=== PATIENT | female | born 1930 | race Caucasian/White ===

== ENCOUNTER 2018-10-16 16:05 | Observation (INO) | payer MEDICARE, OTHER ==
[2018-10-16] MEDS: SOD CHLORIDE 0.9% 1,000 ML IV (16:10)
[2018-10-16] MEDS: ALBUTEROL 0.5% (NEB) 2.5 MG/0.5 ML AMP INH (16:47)
[2018-10-16] MEDS: IPRATROPIUM (NEB) 0.5 MG/2.5 ML AMP INH (16:48)
[2018-10-16 16:59] LABS: ADD MAN DIFF? NO
[2018-10-16] MEDS ORDERED: LIDOCAINE 1% (MPF) 30 ML INJ INJ (16:59)
[2018-10-16 17:05] LABS: WHITE BLOOD COUNT 13.2 10^3/ul (4.8-10.8)
[2018-10-16 17:05] LABS: BASOPHIL # 0.1 10^3/ul (0.0-0.1); BASOPHILS % 0.4 % (0.0-2.0); EOSINOPHILS # 0.1 10^3/ul (0.0-0.5); EOSINOPHILS % 0.8 % (0.0-7.0); HEMOGLOBIN 11.6 g/dl (12.0-16.0); LYMPHOCYTES # 1.2 10^3/ul (0.8-2.9); LYMPHOCYTES % 8.9 % (15.0-51.0); MEAN CORPUSCULAR HEMOGLOBIN 28.2 pg (29.0-33.0); MEAN CORPUSCULAR HGB CONC 32.2 g/dl (32.0-37.0); MEAN CORPUSCULAR VOLUME 87.6 fl (82.0-101.0); MEAN PLATELET VOLUME 10.4 fl (7.4-10.4); MONOCYTES % 7.2 % (0.0-11.0); NEUTROPHIL # 10.9 10^3/ul (1.6-7.5); NEUTROPHILS % 82.2 % (39.0-77.0); PLATELET COUNT 323 10^3/UL (140-415); RED BLOOD COUNT 4.11 10^6/ul (4.20-5.40); RED CELL DISTRIBUTION WIDTH 14.3 % (11.5-14.5)
[2018-10-16] MEDS ORDERED: LIDOCAINE 2% (MDV) 20 ML INJ (17:06)
[2018-10-16 17:22] LABS: ALANINE AMINOTRANSFERASE 14 IU/L (13-69); ALBUMIN 3.7 g/dl (3.3-4.9); ALBUMIN/GLOBULIN RATIO 1.08; ALKALINE PHOSPHATASE 64 IU/L (42-121); ANION GAP 9 (5-13); ASPARTATE AMINO TRANSFERASE 24 IU/L (15-46); BILIRUBIN,INDIRECT 0.4 mg/dl (0-1.1); BILIRUBIN,TOTAL 0.4 mg/dl (0.2-1.3); BLOOD UREA NITROGEN 19 mg/dl (7-20); CALCIUM 9.2 mg/dl (8.4-10.2); CARBON DIOXIDE 22 mmol/L (21-31); CHLORIDE 108 mmol/L (97-110); CREATININE 0.76 mg/dl (0.44-1.00); GLUCOSE 106 mg/dl (70-220); LIPASE 49 U/L (23-300); POTASSIUM 4.2 mmol/L (3.5-5.1); SODIUM 139 mmol/L (135-144); TOTAL PROTEIN 7.1 g/dl (6.1-8.1)
[2018-10-16] MEDS: LIDOCAINE 1% (MPF) 5 ML VIAL INJ (17:30)
[2018-10-16 17:33] LABS: TROPONIN-I < 0.012 ng/ml (0.000-0.120)
[2018-10-16] MEDS: METHYLPREDNISOLONE 125 MG INJ IV (18:03)
[2018-10-16] MEDS: DIPHTH/TET/ACEL PERTUSS (ADULT) 0.5 ML VIAL IM* (18:05)
[2018-10-16] MEDS: LIDOCAINE 2% (MDV) 20 ML INJ INJ (18:44)
[2018-10-16] MEDS: ALBUTEROL 0.083% (NEB) 2.5 MG/3 ML AMP HHN (19:50)
[2018-10-16 20:03] LABS: ADD UMIC YES; UR ASCORBIC ACID NEGATIVE (NEGATIVE); UR BACTERIA FEW /HPF (NONE SEEN); UR BILIRUBIN (Dip) NEGATIVE (NEGATIVE); UR BLOOD (Dip) NEGATIVE (NEGATIVE); UR CLARITY CLEAR (CLEAR); UR COLOR YELLOW (YELLOW); UR GLUCOSE (Dip) NEGATIVE (NEGATIVE); UR KETONES (Dip) TRACE mg/dL (NEGATIVE); UR LEUKOCYTE ESTERASE (Dip) TRACE Leu/ul (NEGATIVE); UR NITRITE (Dip) NEGATIVE (NEGATIVE); UR RBC 1 /HPF (0-5); UR SPECIFIC GRAVITY (Dip) 1.011 (1.003-1.030); UR TOTAL PROTEIN (Dip) NEGATIVE (NEGATIVE); UR UROBILINOGEN (Dip) NEGATIVE (NEGATIVE); UR WBC 6 /HPF (0-5)
[2018-10-16] MEDS ORDERED: ACETAMINOPHEN 325 MG TAB PO (22:30)
[2018-10-16] MEDS ORDERED: NACL 0.9% 3 ML SYG IV (22:30)
[2018-10-16] MEDS ORDERED: NITROGLYCERIN (SL) 0.4 MG TAB SL (22:30)
[2018-10-16] MEDS ORDERED: HYDROCODONE/APAP (5/325) TAB PO ×2 (22:30)
[2018-10-16] MEDS ORDERED: LORAZEPAM 0.5 MG TAB PO (22:30)
[2018-10-16] MEDS ORDERED: IBUPROFEN 400 MG TAB PO (22:30)
[2018-10-16] MEDS ORDERED: ONDANSETRON 4 MG INJ IV (22:30)
[2018-10-16] MEDS ORDERED: ALBUTEROL/IPRATROPIUM (NEB) 3 ML AMP HHN (22:30)
[2018-10-16] MEDS ORDERED: MECLIZINE 25 MG TAB PO (22:30)
[2018-10-17] MEDS: ALBUTEROL HFA 8 GM INHALER INH ×5 (02:30→14:30)
[2018-10-17 06:09] LABS: ADD MAN DIFF? NO
[2018-10-17 06:18] LABS: ABNORMAL IP MESSAGE 1; BASOPHILS % 0.1 % (0.0-2.0); HEMOGLOBIN 10.2 g/dl (12.0-16.0); LYMPHOCYTES # 0.6 10^3/ul (0.8-2.9); LYMPHOCYTES % 4.4 % (15.0-51.0); MEAN CORPUSCULAR HEMOGLOBIN 27.7 pg (29.0-33.0); MEAN CORPUSCULAR HGB CONC 31.9 g/dl (32.0-37.0); MEAN PLATELET VOLUME 10.7 fl (7.4-10.4); MONOCYTE # 0.2 10^3/ul (0.3-0.9); MONOCYTES % 1.3 % (0.0-11.0); NEUTROPHIL # 12.2 10^3/ul (1.6-7.5); NEUTROPHILS % 93.7 % (39.0-77.0); PLATELET COUNT 298 10^3/UL (140-415); RED BLOOD COUNT 3.68 10^6/ul (4.20-5.40); RED CELL DISTRIBUTION WIDTH 14.6 % (11.5-14.5)
[2018-10-17] MEDS: PANTOPRAZOLE (EC) 40 MG TAB PO (06:19)
[2018-10-17 06:31] LABS: POSITIVE DIFF @See below
[2018-10-17 06:38] LABS: ALANINE AMINOTRANSFERASE 14 IU/L (13-69); ALBUMIN 3.2 g/dl (3.3-4.9); ALBUMIN/GLOBULIN RATIO 1.03; ALKALINE PHOSPHATASE 65 IU/L (42-121); ANION GAP 9 (5-13); ASPARTATE AMINO TRANSFERASE 15 IU/L (15-46); BILIRUBIN,INDIRECT 0.2 mg/dl (0-1.1); BILIRUBIN,TOTAL 0.2 mg/dl (0.2-1.3); BLOOD UREA NITROGEN 20 mg/dl (7-20); CALCIUM 9.3 mg/dl (8.4-10.2); CARBON DIOXIDE 20 mmol/L (21-31); CHLORIDE 114 mmol/L (97-110); CREATININE 0.68 mg/dl (0.44-1.00); GLUCOSE 279 mg/dl (70-220); POTASSIUM 3.9 mmol/L (3.5-5.1); SODIUM 143 mmol/L (135-144); TOTAL PROTEIN 6.3 g/dl (6.1-8.1)
[2018-10-17 06:41] LABS: HEMOGLOBIN A1C 5.7 % (0-5.9)
[2018-10-17] MEDS: HYDROCORTISONE 2.5% 30 GM RECT CR PR (09:00)
[2018-10-17] MEDS: MAGNESIUM OXIDE 400 MG TAB PO (09:01)
[2018-10-17] MEDS: LOSARTAN 50 MG TAB PO (09:01)
[2018-10-17] MEDS: AZITHROMYCIN 250 MG TAB PO (12:33)
[2018-10-17] MEDS: FLUTICASONE/VILANTEROL 200-25 INH DEVICE INH (12:33)
[2018-10-17] MEDS ORDERED: LATANOPROST 0.005% 2.5 ML OPH BOTH EYES (21:00)
[2018-10-17] MEDS ORDERED: ATORVASTATIN 40 MG TAB PO (21:00)
== END 2018-10-17 15:14 | disposition home or self-care (01) ==
LOC: E/R 16:05 → 6WM 20:25
DX: J20.9 Acute bronchitis, unspecified (principal); R42 Dizziness and giddiness; J84.9 Interstitial pulmonary disease, unspecified; D64.9 Anemia, unspecified; I10 Essential (primary) hypertension; H40.9 Unspecified glaucoma; S01.01XA Laceration without foreign body of scalp, initial encounter; W19.XXXA Unspecified fall, initial encounter
CPT/HCPCS: 12002; 36415; 70450; 71045; 73110-LT; 80053; 81001; 83036; 83690; 84484; 85025; 90471; 90715; 93005; 93306; 93880; 94640; 94644; 94645; 96374; 97161; 99285-25; G0378